=== PATIENT | male | born 1960 | race Caucasian/White ===

== ENCOUNTER 2017-01-29 09:14 | Observation (INO) | payer MEDICARE ==
--- NOTE | 2017-01-29 09:49 | RAD ---
EXAM: CHEST 1 VIEW: HISTORY: Chest pain. Nausea and dizziness. COMPARISON: None. FINDINGS: Normal cardiac silhouette. The pulmonary vessels and pulmonary hilum are normal. Costophrenic angl es are clear. No masses or consolidation. No pneumothorax or osseous abnormalities. IMPRESSION: No acute cardiopulmonary process. POS: [facility]
[2017-01-29 09:52] LABS: Mean Platelet Volume 7.9 fL (7.4-10.4); Red Blood Cell (RBC) Count 4.61 mill/uL (4.70-6.10); White Blood Cell (WBC) Count 4.4 thou/uL (4.8-10.8)
[2017-01-29 10:03] LABS: Troponin I Less than 0.010 ng/mL (< 0.028)
[2017-01-29 10:09] LABS: ALT (SGPT) 26 U/L (8-55); AST (SGOT) 32 U/L (5-34); Alkaline Phosphatase 110 U/L (40-150); Anion Gap 9 mmol/L (10-20); BUN (Urea Nitrogen) 6 mg/dL (8.4-25.7); Bilirubin, Total 0.9 mg/dL (0.2-1.2); CK (CPK) 136 U/L (30-200); Calc. Creatinine Clearance 0 mL/min (70-130); Calcium 9.1 mg/dL (7.8-10.44); Carbon Dioxide 25 mmol/L (22-29); Chloride 105 mmol/L (98-107); Estimated GFR-MDRD Greater than 90; Globulin 3.1 g/dL (2.4-3.5); Lipase 46 U/L (8-78); Magnesium 1.9 mg/dL (1.6-2.6); Protein, Total 6.9 g/dL (6.0-8.3)
[2017-01-29] MEDS ORDERED: Nitroglycerin 2% Ointment 1 INCH/1 GM Packet ONE (10:09)
[2017-01-29 10:21] LABS: Band 3 % (5-11); Neutrophil 39 % (42-75); Reactive Lymphocytes 9 % (0-10)
[2017-01-29 10:53] LABS: Bilirubin Negative (Negative); Blood, Urine Negative (Negative); Glucose, Urine (Dipstick) 500 mg/dL (Negative); Ketone, Urine Negative (Negative); Nitrite Negative (Negative); Protein, Urine (Dipstick) Negative (Neg-Trace)
[2017-01-29] MEDS ORDERED: Labetalol HCl 100 MG/20 ML VIAL ONE (11:07)
[2017-01-29 12:20] VITALS: BMI 37.9
[2017-01-29] MEDS ORDERED: Ondansetron HCl/PF 4 MG/2 ML Vial IVP PRN ×2 (12:47→14:23)
[2017-01-29] MEDS ORDERED: Ondansetron ODT 4 MG TAB PO PRN (12:47)
[2017-01-29 13:01] LABS: Troponin I 0.015 ng/mL (< 0.028)
[2017-01-29] MEDS ORDERED: hydrALAZINE 20 MG/ML VIAL SLOW IVP PRN (14:23)
[2017-01-29] MEDS ORDERED: Acetaminophen 500 MG TAB PO PRN (14:23)
[2017-01-29] MEDS ORDERED: cloNIDine 0.1 MG TAB PO PRN (14:23)
[2017-01-29] MEDS: traMADol HCl 50 MG TAB PO PRN ×2 (15:49→20:11)
--- NOTE | 2017-01-29 16:31 | HP ---
DATE OF ADMISSION: 01/29/2017 PRIMARY CARE PROVIDER: Melissa urban. CHIEF COMPLAINT: Chest pain and headache. HISTORY OF PRESENT ILLNESS: This is a 56-year-old male who presents to [facility] complaining of less than one day history of chest pain and pressure, centrally [facility] ed occurring at rest on 01/28/2017. The patient states he was lying down watching TV when he had ch est pressure radiating to his left upper extremity. The patient denied any associated nausea, vomit ing, shortness of breath, diaphoresis, fever, chills, increased cough, congestion, or trauma. The p atient states that he had similar symptoms many years prior, undergoing evaluation including stress testing, which he says is negative. The patient does admit to smoking up to several cigarettes a da y, but has been cutting down his overall volume. The patient denies any known strong family history of coronary artery disease and denies taking any current medications or antihypertensives. The pat ient also admits to a headache frontally located over the last 2-3 days, intermittent without specif ic symptomatic management at home. The patient states he has ibuprofen at home, but is afraid to ta ke this as he developed unapparent bleeding ulcer after taking ibuprofen in 2004. The patient denie s any specific hematochezia, hematemesis, increasing abdominal pain, change to bowel habits or expos ure history. In the emergency room, the patient underwent general evaluation including serial tropo nins which were negative. Portable chest imaging showed no acute infiltrate. An EKG showed an inco mplete right bundle branch block pattern and left axis deviation. Patient received aspirin 324 mg a s well as IV labetalol and transdermal nitroglycerin. The patient was transferred to the observatio n unit for further evaluation. PAST MEDICAL HISTORY: 1. History of cholecystitis, status post cholecystectomy. 2. History of cirrhosis, confirmed by biopsy on 04/22/2016. 3. History of polysubstance abuse including alcohol, tobacco, and methamphetamines. 4. History of GI bleed secondary to gastric/esophageal ulcers from NSAID use. 5. History of ADHD. 6. Question of hypertension, no current treatment. 7. PTSD/depression. PAST SURGICAL HISTORY: 1. Status post endoscopy secondary to GI bleed. 2. Status post laparoscopic cholecystectomy in 2017. CURRENT MEDICATIONS: None. ALLERGIES: No known drug allergies. FAMILY HISTORY: Grandmother with cancer, unknown type. SOCIAL HISTORY: The patient resides in the [facility]. Works in the [employer]. Smokes up to 2-3 cigarettes daily. No current alcohol or illicit drug use. Remote hi story of methamphetamine abuse. REVIEW OF SYSTEMS: The following complete review of systems was negative, unless otherwise mentione d in the HPI or below: Constitutional: Weight loss or gain, ability to conduct usual activities. Skin: Rash, itching. Eyes: Double vision, pain. ENT/Mouth: Nose bleeding, neck stiffness, pain, tenderness. Cardiovascular: Palpitations, dyspnea on exertion, orthopnea. Respiratory: Shortness of breath, wheezing, cough, hemoptysis, fever or night sweats. Gastrointestinal: Poor appetite, abdominal pain, heartburn, nausea, vomiting, constipation, or diar jesús. Genitourinary: Urgency, frequency, dysuria, nocturia. Musculoskeletal: Pain, swelling. Neurologic/Psychiatric: Anxiety, depression. Allergy/Immunologic: Skin rash, bleeding tendency. Otherwise negative except as stated per HPI. PHYSICAL EXAMINATION: VITAL SIGNS: On admission, blood pressure 143/78, pulse 65, respiratory rate 20, temperature 98.5 d egrees Fahrenheit, and O2 saturation 98% on room air. GENERAL APPEARANCE: This is a 56-year-old male, alert and oriented x3, pleasant, conversa nt, in no acute distress. HEENT: Pupils are equal, round, and reactive to light and accommodation. Extraocular muscles are i ntact. No scleral icterus, no conjunctival injection. Nares patent. OP is clear. Teeth in fair r epair. NECK: Supple, no cervical adenopathy, no thyromegaly, no carotid bruits, no JVD appreciated. Cervi shashank spine with full active and passive range of motion. No meningeal signs appreciated. CHEST: Lungs are clear to auscultation bilaterally. CARDIOVASCULAR: S1, S2, without noted murmur. ABDOMEN: Rounded, soft, nontender, nondistended. Bowel sounds are positive in all four quadrants. There is no hepatosplenomegaly, no abdominal bruits, no rebound or guarding appreciated. No palpab le mass. EXTREMITIES: Warm and dry with good turgor. No clubbing, cyanosis or asymmetric edema appreciated. Pulses palpable distally at the dorsalis pedis, posterior tibial, and popliteal arteries bilateral ly. Capillary refill less than 2 seconds. NEUROLOGIC: Cranial nerves II-XII are grossly intact. No focal or lateralizing signs appreciated. PERTINENT LABORATORY DATA AND X-RAY FINDINGS: Sodium 136, potassium 3.2, chloride 105, CO2 25, BUN 6, creatinine 0.74, glucose 145, calcium 9.1, magnesium 1.9, total bilirubin 0.9, AST 32, ALT 26, al kaline phosphatase 110. Total CK of 136, troponin I negative x2. BNP 75.3, lipase 46. CBC showed white blood cell count of 4.4, hemoglobin 15, hematocrit 45, MCV 98, platelet count 164 with 39% vania trophils. Urinalysis positive for glucose. Portable chest x-ray dated 01/29/2017 showed no acute c ardiopulmonary process. EKG dated 01/29/2017 by my interpretation shows sinus mechanism with heart rates in the 60s. Normal R-wave progression noted in the precordial leads. Incomplete right bundle branch block pattern noted. Left axis deviation noted. No acute ST-T wave changes appreciated. ASSESSMENT AND PLAN: 1. Chest pain. Patient will be observed on the telemetry unit. We will proceed with exercise Card iolite stress testing in the a.m. Check fasting lipid profile. Continue aspirin 325 mg daily. 2. Headache. Consistent with tension headache. Tylenol 1000 mg p.o. every 6 hours p.r.n. pain, Ul tram 50 mg p.o. q.6 hours p.r.n. for moderate to severe pain. 3. Hyperglycemia. No current or previous history of diabetes mellitus. We will check A1c level in the a.m. The patient was noted with glucosuria. 4. Elevated blood pressure. We will continue serial blood pressure monitoring and treat as clinica lly indicated. 5. Tobacco use. We will offer smoking cessation resources prior to discharge. 6. History of cirrhosis. No current evidence of transaminitis or chronic liver disease. We will r epeat LFTs in the a.m. 7. Prophylaxis. Sequential compression devices while in bed. Pepcid 20 mg p.o. b.i.d. 8. Code status FULL. Surrogate medical decision maker is [place].
[2017-01-29] MEDS: Famotidine 20 MG TAB PO SCH (20:11)
[2017-01-29] MEDS ORDERED: FLU VACC QS2017-18 36 mo. & older 0.5 ML SYRINGE IM ONE (21:00)
[2017-01-29] MEDS: Ondansetron ODT 4 MG TAB PO PRN (22:05)
[2017-01-30] MEDS: traMADol HCl 50 MG TAB PO PRN ×2 (00:35→04:34)
[2017-01-30 05:02] LABS: ALT (SGPT) 25 U/L (8-55); AST (SGOT) 30 U/L (5-34); Alkaline Phosphatase 96 U/L (40-150); Anion Gap 9 mmol/L (10-20); BUN (Urea Nitrogen) 7 mg/dL (8.4-25.7); Calc. Creatinine Clearance 175 mL/min (70-130); Calcium 8.8 mg/dL (7.8-10.44); Carbon Dioxide 26 mmol/L (22-29); Chloride 105 mmol/L (98-107); Cholesterol 160 mg/dl (< 200 Desired); Estimated GFR-MDRD Greater than 90; Globulin 2.9 g/dL (2.4-3.5); LDL Cholesterol, Calculated 103 mg/dL; Protein, Total 6.4 g/dL (6.0-8.3)
[2017-01-30 05:06] LABS: Hematocrit 44.7 % (42.0-52.0); Mean Platelet Volume 7.9 fL (7.4-10.4); Neutrophil 30 % (42-75); Red Blood Cell (RBC) Count 4.57 mill/uL (4.70-6.10); White Blood Cell (WBC) Count 5.4 thou/uL (4.8-10.8)
[2017-01-30] MEDS ORDERED: Ketorolac Tromethamine 30 MG/ML VIAL IVP PRN (06:28)
[2017-01-30] MEDS ORDERED: Aspirin 325 MG TAB PO SCH (09:00)
[2017-01-30] MEDS: Famotidine 20 MG TAB PO SCH (09:18)
[2017-01-30] MEDS: Ondansetron ODT 4 MG TAB PO PRN (11:28)
[2017-01-30] MEDS ORDERED: Ibuprofen 800 MG TAB PO SCH (11:45)
[2017-01-30] MEDS ORDERED: Regadenoson 0.4 MG/5 ML SYRINGE ONE (12:00)
[2017-01-30 12:06] VITALS: BP 139/72; TEMP 97.4
--- NOTE | 2017-01-30 12:13 | NM ---
NUCLEAR MEDICINE CARDIAC PERFUSION EXAMINATION WITH EJECTION FRACTION 01/30/17 HISTORY: 56-year-old male with chest pain and hypertension. TECHNIQUE: A two day nuclear medicine cardiac perfusion examination was performed. Rest images were obtained us ing 31.4 millicuries of technetium 99 m sestamibi. Stress images were obtained the following day usi ng 30 millicuries of technetium 99m Sestamibi and Lexiscan. FINDINGS: Tomographic images show no fixed or reversible perfusion defects. Gated images show normal wall omari on with an ejection fraction of 58%. EDV is 187 mL. LHR is 0.4. TID is 1.16. IMPRESSION: No evidence of ischemia. POS: [facility]
--- NOTE | 2017-01-30 20:10 | DIS ---
DATE OF ADMISSION: 01/29/2017 DATE OF DISCHARGE: 01/30/2017 DISCHARGE DIAGNOSES: 1. Chest pain, non-cardiac. 2. Hypertension, labile. 3. Dyslipidemia. 4. Tension headache. 5. Hyperglycemia, hemoglobin A1c 6.0, diet managed. 6. Tobacco use. 7. History of cirrhosis, stable. CONSULTATIONS: None. PERTINENT LABORATORY DATA AND X-RAY FINDINGS: Potassium ranged between 3.2-3.3. LFTs within normal limits. Total bilirubin 1.0, troponin I negative x3. BNP 75. Total cholesterol 160, triglyceride s 61, HDL 45, LDL 103, lipase 46. Hemoglobin A1c 6.0. CBC showed hemoglobin of 15, hematocrit 45, MCV 98, platelet count 158. Portable chest x-ray dated 01/29/2017 showed no acute cardiopulmonary p rocess. Exercise Cardiolite stress test dated 01/29/2017 showed no evidence for reversible or fixed ischemia with calculated ejection fraction of 58%. HOSPITAL COURSE: Patient was observed on the telemetry unit after initially presenting with chest p ain. The patient underwent serial cardiac enzymes which were negative x3 proceeding to exercise Car diolite stress testing showing no evidence of reversible or fixed ischemia with calculated ejection fraction of 58%. The patient was noted with elevated blood pressure readings throughout the hospita l course with recommendations to initiate therapy with metoprolol 12.5 mg b.i.d. The patient may ne ed additional titration of his antihypertensive regimen on an ongoing basis after discharge. Overal l, the patient did remain clinically stable throughout the remainder the hospital course with teleme try monitoring showing a sinus mechanism without evidence of acute arrhythmia or dysrhythmia. The p atient clinically stable and ready for discharge on 01/30/2017. DISCHARGE MEDICATION: Metoprolol tartrate 12.5 mg p.o. b.i.d. FOLLOWUP: The patient to establish care at a local [facility] clinic in the [place], [place] area within 7 days. CONDITION ON DISCHARGE: Stable. ACTIVITY: Ad sánchez. DIET: Heart healthy and ADA. CODE STATUS: FULL. DISPOSITION: Home 01/30/2017.
--- NOTE | 2017-01-31 10:24 | STRESS ---
Acquisition Time: 2017-01-30 09:42:50 Total Exercise Time: 00:05:57 Test Indications: CHEST PAIN Medications: Protocol: AMANDA Max HR: 108 BPM 65% of Pred: 165 BPM Max BP: 170/070 mmHG Max Work Load: 7.0 METS RESTING ECG: NORMAL SINUS RHYTHM AT 75 BPM SYMPTOMS: NAUSEA NORMAL BP RESPONSE ECTOPY: NONE ECG STRESS: NO SIGNIFICANT CHANGES INTERPRETATION: NEGATIVE ECG/AWAIT NUCLEAR IMAGES FOR DEFINITIVE DIAGNOSIS COMMENTS: UNABLE TO ACHIEVE TARGET HEART RATE; CHANGED TO LEXISCAN STRESS Confirmed by MILAGRO RICE ([id number]), tape editor SALLIE ISAACS ([id number]) on 01/31/2017 10:24:04 AM Referred By: MD Santos BISHOP Confirmed By:MILAGRO RICE
== END 2017-01-30 12:24 | disposition home or self-care (01) ==
LOC: ERS 09:14 → 2SW 11:02
PROVIDERS: ADMIT Family Medicine; ATTEND Family Medicine
DX: R07.89 Other chest pain (principal); G44.209 Tension-type headache, unspecified, not intractable; I10 Essential (primary) hypertension; E78.5 Hyperlipidemia, unspecified; R73.9 Hyperglycemia, unspecified; K74.60 Unspecified cirrhosis of liver; F90.9 Attention-deficit hyperactivity disorder, unspecified type; F43.10 Post-traumatic stress disorder, unspecified; F32.9 Major depressive disorder, single episode, unspecified; F17.210 Nicotine dependence, cigarettes, uncomplicated; Z90.49 Acquired absence of other specified parts of digestive tract; Z98.890 Other specified postprocedural states
CPT/HCPCS: 71010; 78452; 80053 ×2; 80061; 81003; 82550; 82553; 83036; 83690; 83735; 83880; 84484 ×2; 85007; 85025; 85027; 93005; 93017; 94760; 96374; 96375; 99285; A9500; G0378; 36415; A4216; J1885; J2785; Q0162

== ENCOUNTER 2017-03-09 12:10 | Emergency (ER) | payer MEDICARE ==
--- NOTE | 2017-03-09 14:57 | RAD ---
THREE VIEWS OF THE RIGHT WRIST: DATE: 03/09/17. COMPARISON: None. HISTORY: Pain right wrist. FINDINGS: There is no widening of the scapholunate interval. There is no displaced fracture or evidence of dis location seen involving the right wrist. The lateral examination is suboptimal secondary to rotation . No lateral examination is provided. IMPRESSION: No acute fracture or dislocation is seen. The study is suboptimal with respect to the lateral radiog raph. If the study was performed in the setting of trauma and symptoms persist, followup imaging in 7-10 days with dedicated scaphoid views advised. POS: [facility]
== END 2017-03-09 13:00 | disposition home or self-care (01) ==
LOC: ERS 12:10
DX: S66.911A Strain of unspecified muscle, fascia and tendon at wrist and hand level, right hand, initial encounter (principal); E11.9 Type 2 diabetes mellitus without complications; F41.9 Anxiety disorder, unspecified; F43.10 Post-traumatic stress disorder, unspecified; F17.210 Nicotine dependence, cigarettes, uncomplicated; I10 Essential (primary) hypertension; K74.60 Unspecified cirrhosis of liver; Z71.6 Tobacco abuse counseling
CPT/HCPCS: 99406

== ENCOUNTER 2020-03-01 15:29 | Emergency (ER) | payer MEDICARE ==
[2020-03-01 16:14] LABS: #Eosinphils 0.1 thou/uL (0.0-0.7); #Lymphocytes 1.8 thou/uL (1.20-3.40); #Monocytes 0.5 thou/uL (0.11-0.59); #Neutrophils 1.7 thou/uL (1.40-6.50); %Basophils 0.7 % (0.0-1.0); %Eosinophils 3.1 % (0.0-10.0); %Lymphocytes 43.2 % (21.0-51.0); %Monocytes 13.1 % (0.0-10.0); %Neutrophils 39.9 % (42.0-75.0); Hemoglobin 13.5 g/dL (14.0-18.0); Mean Corpuscular HGB CONC 34.3 g/dL (32.0-36.0); Mean Corpuscular Volume 96.1 fL (78.0-98.0); Mean Platelet Volume 7.6 fL (7.4-10.4); Platelet Count 162 thou/uL (130-400); RBC Distribution Width 12.6 % (11.5-14.5); White Blood Cell (WBC) Count 4.1 thou/uL (4.8-10.8)
[2020-03-01 16:33] LABS: ALT (SGPT) 25 U/L (8-55); AST (SGOT) 32 U/L (5-34); Albumin 3.5 g/dL (3.5-5.0); Alkaline Phosphatase 105 U/L (40-110); Anion Gap 11 mmol/L (10-20); BUN (Urea Nitrogen) 10 mg/dL (8.4-25.7); Bilirubin, Total 0.9 mg/dL (0.2-1.2); Calc. Creatinine Clearance 0 mL/min (70-130); Calcium 9.1 mg/dL (7.8-10.44); Carbon Dioxide 25 mmol/L (22-29); Chloride 106 mmol/L (98-107); Estimated GFR-MDRD 82; Glucose 161 mg/dL (70-105); Protein, Total 6.5 g/dL (6.0-8.3); Sodium 139 mmol/L (136-145)
[2020-03-01 16:58] LABS: CKMB 9.6 ng/mL (0-6.6)
== END 2020-03-01 17:26 | disposition left against medical advice (07) ==
LOC: ERS 15:29
DX: Z53.21 Procedure and treatment not carried out due to patient leaving prior to being seen by health care provider (principal)
CPT/HCPCS: 36415; 80053; 82553; 83880; 84484; 85025

== ENCOUNTER 2022-08-15 12:35 | Inpatient (IN) | payer MEDICARE, OTHER ==
[2022-08-15] MEDS ORDERED: Morphine 4 MG/ML VIAL ONE ×2 (13:02→15:53)
[2022-08-15] MEDS ORDERED: Cefepime 2 GM VIAL ONE (13:02)
[2022-08-15 13:20] LABS: #Eosinphils 0.2 thou/uL (0.0-0.7); #Lymphocytes 1.3 thou/uL (1.20-3.40); #Monocytes 0.9 thou/uL (0.11-0.59); #Neutrophils 6.3 thou/uL (1.40-6.50); %Basophils 0.3 % (0.0-1.0); %Eosinophils 1.7 % (0.0-10.0); Hemoglobin 12.4 g/dL (14.0-18.0); Mean Corpuscular HGB CONC 35.3 g/dL (32.0-36.0); Mean Corpuscular Hemoglobin 34.5 pg (27.0-31.0); Mean Corpuscular Volume 97.9 fl (78.0-98.0); Mean Platelet Volume 8.4 fL (7.4-10.4); Platelet Count 186 10x3/uL (130-400); RBC Distribution Width 13.7 % (11.5-14.5); Red Blood Cell (RBC) Count 3.61 mill/uL (4.70-6.10); White Blood Cell (WBC) Count 8.7 10x3/uL (4.8-10.8)
[2022-08-15 13:53] LABS: ALT (SGPT) 32 U/L (8-55); AST (SGOT) 55 U/L (5-34); Albumin 2.6 g/dL (3.5-5.0); Alkaline Phosphatase 82 U/L (40-110); Anion Gap 11 mmol/L (10-20); BUN (Urea Nitrogen) 9 mg/dL (8.4-25.7); Bilirubin, Total 1.4 mg/dL (0.2-1.2); Calc. Creatinine Clearance 0 mL/min (70-130); Calcium 8.2 mg/dL (7.8-10.44); Carbon Dioxide 23 mmol/L (22-29); Chloride 104 mmol/L (98-107); Estimated GFR 79; Globulin 3.9 g/dL (2.4-3.5); Glucose 202 mg/dL (70-105); Potassium 3.4 mmol/L (3.5-5.1); Protein, Total 6.5 g/dL (6.0-8.3); Sodium 135 mmol/L (136-145)
[2022-08-15] MEDS ORDERED: Vancomycin 1 GM/200 ML (FROZEN) BAG ONE (14:05)
[2022-08-15 14:19] LABS: Bilirubin Negative (Negative); Blood, Urine Negative (Negative); Clarity Clear (Clear); Glucose, Urine (Dipstick) 50 mg/dL (Negative); Ketone, Urine Negative (Negative); Leukocyte Negative Leu/uL (Negative); Nitrite Negative (Negative); Protein, Urine (Dipstick) Negative (Neg-Trace); Specific Gravity, Urine 1.011 (1.002-1.036); Urobilinogen 6 mg/dL (Less than 2); pH, Urine 6.5 (5.0-9.0)
[2022-08-15] MEDS ORDERED: Potassium Chloride 20 MEQ TAB PO SCH (16:00)
[2022-08-15 16:25] LABS: Lactic Acid 2.2 mmol/L (0.5-2.2)
[2022-08-15] MEDS ORDERED: Dextrose 5% in Water 1,000 ML IV PRN (16:37)
[2022-08-15] MEDS ORDERED: Dextrose 50% Abboject 50 ML SYRINGE SLOW IVP PRN (16:37)
[2022-08-15] MEDS ORDERED: HumaLOG 300 UNITS/3 ML VIAL SC PRN ×2 (16:43)
[2022-08-15] MEDS ORDERED: Acetaminophen 325 MG TAB PO PRN (17:12)
[2022-08-15 17:20] VITALS: BMI 31.3
[2022-08-15] MEDS ORDERED: hydrALAZINE 20 MG/ML VIAL SLOW IVP PRN (17:37)
[2022-08-15] MEDS ORDERED: Lisinopril 10 MG TAB PO SCH (17:45)
[2022-08-15] MEDS ORDERED: Vancomycin 1 GM in Premix Bag 1 BAG IVPB SCH (17:45)
[2022-08-15 20:10] LABS: Hemoglobin A1c 5.2 % (4.0-6.0)
[2022-08-15 20:13] LABS: INR-International Normal Ratio 1.3; Prothrombin Time 16.4 sec (12.0-14.7)
[2022-08-15 20:14] LABS: PTT 39.7 sec (22.9-36.1)
[2022-08-15] MEDS: traMADol HCl 50 MG TAB PO PRN (22:08)
[2022-08-15] MEDS: Melatonin 3 MG TAB PO PRN (23:12)
[2022-08-15] MEDS: Clindamycin/D5W 300 MG/50 ML BAG IVPB SCH (23:12)
[2022-08-16] MEDS: Cefepime 2 GM in Sodium Chloride 0.9% 100 ML IVPB SCH ×2 (01:33→12:39)
[2022-08-16] MEDS: VANCOMYCIN 1.25 GM/250 ML BAG 1.25 GM in Premix Bag 1 BAG IVPB SCH ×2 (04:11→15:07)
[2022-08-16 06:28] LABS: ALT (SGPT) 27 U/L (8-55); AST (SGOT) 39 U/L (5-34); Albumin 2.3 g/dL (3.5-5.0); Alkaline Phosphatase 99 U/L (40-110); Anion Gap 9 mmol/L (10-20); BUN (Urea Nitrogen) 9 mg/dL (8.4-25.7); Bilirubin, Total 0.8 mg/dL (0.2-1.2); Calc. Creatinine Clearance 126 mL/min (70-130); Calcium 7.9 mg/dL (7.8-10.44); Carbon Dioxide 22 mmol/L (22-29); Chloride 108 mmol/L (98-107); Estimated GFR 101; Globulin 3.1 g/dL (2.4-3.5); Glucose 135 mg/dL (70-105); Potassium 3.2 mmol/L (3.5-5.1); Protein, Total 5.4 g/dL (6.0-8.3); Sodium 136 mmol/L (136-145)
[2022-08-16] MEDS: Clindamycin/D5W 300 MG/50 ML BAG IVPB SCH (06:31)
[2022-08-16 06:53] LABS: #Basophils 0.1 thou/uL (0.0-0.2); #Eosinphils 0.4 thou/uL (0.0-0.7); #Lymphocytes 1.8 thou/uL (1.20-3.40); #Monocytes 0.9 thou/uL (0.11-0.59); #Neutrophils 4.9 thou/uL (1.40-6.50); %Basophils 0.8 % (0.0-1.0); %Eosinophils 5.1 % (0.0-10.0); %Lymphocytes 22.5 % (21.0-51.0); %Monocytes 11.3 % (0.0-10.0); %Neutrophils 60.3 % (42.0-75.0); Hemoglobin 11.1 g/dL (14.0-18.0); Mean Corpuscular HGB CONC 32.5 g/dL (32.0-36.0); Mean Corpuscular Hemoglobin 32.2 pg (27.0-31.0); Mean Platelet Volume 8.4 fL (7.4-10.4); Platelet Count 181 10x3/uL (130-400); RBC Distribution Width 13.7 % (11.5-14.5); Red Blood Cell (RBC) Count 3.43 mill/uL (4.70-6.10); White Blood Cell (WBC) Count 8.2 10x3/uL (4.8-10.8)
[2022-08-16] MEDS ORDERED: Potassium Chloride 20 MEQ TAB PO SCH (08:00)
[2022-08-16] MEDS ORDERED: Clindamycin/D5W 300 MG/50 ML BAG IVPB SCH (08:41)
[2022-08-16] MEDS: traMADol HCl 50 MG TAB PO PRN ×2 (09:05→17:24)
[2022-08-16] MEDS: Acetaminophen 325 MG TAB PO SCH ×3 (11:56→23:35)
[2022-08-16] MEDS: Clindamycin/D5W 900 MG in Premix Bag 1 BAG IVPB SCH ×2 (13:56→23:35)
[2022-08-16] MEDS ORDERED: Lisinopril 20 MG TAB PO SCH (14:00)
[2022-08-17 01:29] LABS: Vancomycin, Trough 9.2 ug/mL
[2022-08-17] MEDS: Vancomycin 1 GM in Premix Bag 1 BAG IVPB SCH ×2 (01:56→08:54)
[2022-08-17] MEDS: Cefepime 2 GM in Sodium Chloride 0.9% 100 ML IVPB SCH (01:56)
[2022-08-17] MEDS: Acetaminophen 325 MG TAB PO SCH ×4 (05:14→23:19)
[2022-08-17] MEDS: traMADol HCl 50 MG TAB PO PRN ×2 (05:14→21:06)
[2022-08-17] MEDS: Clindamycin/D5W 900 MG in Premix Bag 1 BAG IVPB SCH (05:15)
[2022-08-17 06:28] LABS: #Eosinphils 0.5 thou/uL (0.0-0.7); #Lymphocytes 1.9 thou/uL (1.20-3.40); #Monocytes 0.9 thou/uL (0.11-0.59); %Basophils 0.4 % (0.0-1.0); %Eosinophils 6.6 % (0.0-10.0); %Lymphocytes 25.5 % (21.0-51.0); %Monocytes 12.3 % (0.0-10.0); %Neutrophils 55.1 % (42.0-75.0); Hemoglobin 11.7 g/dL (14.0-18.0); Mean Corpuscular HGB CONC 33.9 g/dL (32.0-36.0); Mean Corpuscular Hemoglobin 33.8 pg (27.0-31.0); Mean Corpuscular Volume 99.5 fl (78.0-98.0); Mean Platelet Volume 8.3 fL (7.4-10.4); Platelet Count 195 10x3/uL (130-400); RBC Distribution Width 13.8 % (11.5-14.5); Red Blood Cell (RBC) Count 3.46 mill/uL (4.70-6.10); White Blood Cell (WBC) Count 7.3 10x3/uL (4.8-10.8)
[2022-08-17 06:30] LABS: ALT (SGPT) 23 U/L (8-55); AST (SGOT) 33 U/L (5-34); Albumin 2.4 g/dL (3.5-5.0); Alkaline Phosphatase 82 U/L (40-110); Anion Gap 10 mmol/L (10-20); BUN (Urea Nitrogen) 9 mg/dL (8.4-25.7); Bilirubin, Total 0.9 mg/dL (0.2-1.2); Calc. Creatinine Clearance 128 mL/min (70-130); Calcium 8.1 mg/dL (7.8-10.44); Carbon Dioxide 22 mmol/L (22-29); Chloride 108 mmol/L (98-107); Estimated GFR 102; Globulin 3.2 g/dL (2.4-3.5); Glucose 95 mg/dL (70-105); Magnesium 1.6 mg/dL (1.6-2.6); Potassium 3.5 mmol/L (3.5-5.1); Protein, Total 5.6 g/dL (6.0-8.3); Sodium 136 mmol/L (136-145)
[2022-08-17] MEDS: Lisinopril/Hydrochlorothiazide 20 mg/12.5 mg Tablet PO SCH (08:54)
[2022-08-17] MEDS ORDERED: Lisinopril 20 MG TAB PO SCH (09:00)
[2022-08-17] MEDS: Melatonin 3 MG TAB PO PRN (21:06)
[2022-08-17] MEDS: Doxycycline 100 MG CAP PO SCH (21:06)
[2022-08-18] MEDS: Acetaminophen 325 MG TAB PO SCH ×3 (01:06→12:22)
[2022-08-18 06:16] LABS: #Eosinphils 0.3 thou/uL (0.0-0.7); #Monocytes 0.8 thou/uL (0.11-0.59); #Neutrophils 4.8 thou/uL (1.40-6.50); %Basophils 0.4 % (0.0-1.0); %Eosinophils 4.3 % (0.0-10.0); %Lymphocytes 24.8 % (21.0-51.0); %Monocytes 10.2 % (0.0-10.0); %Neutrophils 60.3 % (42.0-75.0); Hemoglobin 13.1 g/dL (14.0-18.0); Mean Corpuscular HGB CONC 33.7 g/dL (32.0-36.0); Mean Corpuscular Hemoglobin 33.1 pg (27.0-31.0); Mean Corpuscular Volume 98.2 fl (78.0-98.0); Mean Platelet Volume 8.1 fL (7.4-10.4); Platelet Count 247 10x3/uL (130-400); RBC Distribution Width 13.8 % (11.5-14.5); Red Blood Cell (RBC) Count 3.96 mill/uL (4.70-6.10)
[2022-08-18 06:33] LABS: ALT (SGPT) 26 U/L (8-55); AST (SGOT) 35 U/L (5-34); Albumin 2.5 g/dL (3.5-5.0); Alkaline Phosphatase 95 U/L (40-110); Anion Gap 11 mmol/L (10-20); BUN (Urea Nitrogen) 10 mg/dL (8.4-25.7); Bilirubin, Total 0.8 mg/dL (0.2-1.2); Calc. Creatinine Clearance 144 mL/min (70-130); Calcium 8.8 mg/dL (7.8-10.44); Carbon Dioxide 22 mmol/L (22-29); Chloride 108 mmol/L (98-107); Estimated GFR 105; Globulin 3.8 g/dL (2.4-3.5); Glucose 94 mg/dL (70-105); Potassium 3.8 mmol/L (3.5-5.1); Protein, Total 6.3 g/dL (6.0-8.3); Sodium 137 mmol/L (136-145)
[2022-08-18] MEDS: Lisinopril/Hydrochlorothiazide 20 mg/12.5 mg Tablet PO SCH (09:03)
[2022-08-18] MEDS: Doxycycline 100 MG CAP PO SCH (09:04)
[2022-08-18] MEDS: traMADol HCl 50 MG TAB PO PRN (09:05)
[2022-08-18 14:52] VITALS: BP 148/78; TEMP 99.1
== END 2022-08-18 17:06 | disposition home or self-care (01) | DRG 603 ==
LOC: ERS 12:35 → T4-A 16:32 → OBSVTOIN 08-16 12:50
PROVIDERS: ADMIT Emergency Medicine; ATTEND Student in an Organized Health Care Education/Training Program
DX: L03.116 Cellulitis of left lower limb (principal); I10 Essential (primary) hypertension; K74.60 Unspecified cirrhosis of liver; L03.115 Cellulitis of right lower limb; E87.6 Hypokalemia; R01.1 Cardiac murmur, unspecified; Z79.899 Other long term (current) drug therapy; Z90.49 Acquired absence of other specified parts of digestive tract; Z98.890 Other specified postprocedural states; Z86.14 Personal history of Methicillin resistant Staphylococcus aureus infection
CPT/HCPCS: 36415; 36416; 80053; 80202; 81003; 83036; 83605; 83735; 85025; 85610; 85730; 87040; 87086; 93005; 93970; 96365; 96367; 96372; 96375; 96376; 97139; G0378; J0360; J0692; J1650; J2270; J3370; J3370-JW; J3490